=== PATIENT | female | born 1995 | race Caucasian/White ===

== ENCOUNTER 2018-04-15 17:30 | Emergency (ER) | payer OTHER ==
[2018-04-15 20:22] LABS: ABS Basophils 0.1 10^3/ul (0-0.2); ABS Eosinophils 0.2 10^3/ul (0-0.6); ABS Lymphocytes 2.8 10^3/ul (1.0-4.8); ABS Monocytes 0.5 10^3/ul (0-0.8); ABS Neutrophils 5.2 10^3/ul (1.5-7.7); ABS Nucleated RBC 0 10^3/ul; Eosinophil % 2.1 %; Hematocrit 42 % (35-47); Hemoglobin 13.8 g/dl (12.0-16.0); Lymphocyte % 31.7 %; Mean Corpuscular HGB Conc 33 g/dl (31-36); Mean Corpuscular Hemoglobin 28 pg (27-31); Mean Corpuscular Volume 85 fL (80-97); Mean Platelet Volume 9.1 fL (7.4-10.4); Nucleated Red Blood Cells % 0.1; Platelet Count 413 10^3/ul (150-450); Red Blood Count 4.92 10^6/ul (4.00-5.40); Red Cell Distribution Width 13 % (10.5-15); White Blood Count 8.8 10^3/ul (3.5-10.8)
[2018-04-15 20:37] LABS: Albumin 4.9 g/dL (3.2-5.2); Albumin/Globulin Ratio 1.4 (1-3); BUN/Creatinine Ratio 15.4 (8-20); Globulin 3.5 g/dL (2-4); Potassium 3.6 mmol/L (3.5-5.0); Total Bilirubin 0.3 mg/dL (0.2-1.0); Total Protein 8.4 g/dL (6.4-8.9)
[2018-04-15] MEDS ORDERED: Sulfamethox/Trimethoprim DS 800/160* TAB PO ONE (20:51)
--- NOTE | 2018-04-15 20:54 | ED ---
Skin Complaint - HPI Summary HPI Summary: Patient complains of right ankle surgery 7 weeks ago with new onset redness, swelling and pain at right ankle starting yesterday. Follow-up at 4 weeks with surgeon unremarkable, patient states she has been having mild pain since. Denies purulent discharge from surgical site denies fever, cough, sore throat, CV, SOB, N/V/D, bowel pain, change in urine, change in BM. Medical history is none. - History of Current Complaint Chief Complaint: EDExtremityLower Time Seen by Provider: 04/15/18 20:01 Stated Complaint: POSS INFECTION RT ANKLE Hx Obtained From: Patient Onset/Duration: Started Hours Ago Skin Exposure Onset/Duration: Hours Ago Timing: Constant Onset Severity: Mild Current Severity: Mild Pain Intensity: 0 Pain Scale Used: 0-10 Numeric Skin Location: Discrete Aggravating Symptom(s): Nothing Alleviating Symptom(s): Nothing - Allergy/Home Medications Allergies/Adverse Reactions: Allergies Allergy/AdvReac Type Severity Reaction Status Date / Time No Known Allergies Allergy Verified 04/15/18 17:36 Home Medications: Home Medications Albuterol Sulfate [Ventolin Hfa] 1 puff INH Q6HR PRN 04/15/18 [History Confirmed 04/15/18] Amitriptyline TAB* [Elavil TAB*] 125 mg PO BEDTIME 04/15/18 [History Confirmed 04/15/18] Montelukast Sodium TAB* [Singulair TAB*] 10 mg PO DAILY 04/15/18 [History Confirmed 04/15/18] PMH/Surg Hx/FS Hx/Imm Hx Endocrine/Hematology History: Denies: Hx Anticoagulant Therapy Cardiovascular History: Denies: Hx Cardiac Arrest History: Denies: Hx Dialysis Sensory History: Denies: Hx Eye Prosthesis EENT History: Denies: Hx Deafness Neurological History: Denies: Hx Developmental Delay Psychiatric History: Denies: Hx Autism Infectious Disease History: No Infectious Disease History: Denies: Traveled Outside the [place] in Last 30 Days - Family History Known Family History: Positive: None - REVIEWED & NONCONTRIBUTORY - Social History Alcohol Use: None Hx Substance Use: No Substance Use Type: Reports: None Hx Tobacco Use: No Smoking Status (MU): Never Smoked Tobacco Review of Systems Constitutional: Negative Eyes: Negative ENT: Negative Cardiovascular: Negative Respiratory: Negative Gastrointestinal: Negative Genitourinary: Negative Musculoskeletal: Other Skin: Negative Neurological: Negative Psychological: Normal All Other Systems Reviewed And Are Negative: Yes Physical Exam - Summary Physical Exam Summary: Mild erythema along surgical incision site on the lateral right ankle. Right ankle appears to be mildly warmer, mildly erythematous and mildly swollen versus left ankle. No purulent discharge. Patient flexes and extends everts and inverts right ankle with no indication of pain. PMS intact distally. Triage Information Reviewed: Yes Vital Signs On Initial Exam: Initial Vitals Temp Pulse Resp BP Pulse Ox 99.9 F 107 16 166/96 98 04/15/18 17:32 04/15/18 17:32 04/15/18 17:32 04/15/18 17:32 04/15/18 17:32 Vital Signs Reviewed: Yes Appearance: Positive: Well-Appearing Skin: Positive: Warm Head/Face: Positive: Normal Head/Face Inspection Eyes: Positive: Normal ENT: Positive: Normal ENT inspection Neck: Positive: Supple Respiratory/Lung Sounds: Positive: Clear to Auscultation Cardiovascular: Positive: Normal Abdomen Description: Positive: Nontender Musculoskeletal: Positive: Normal Neurological: Positive: Normal Psychiatric: Positive: Normal AVPU Assessment: Alert - Aliyah Coma Scale Best Eye Response: 4 - Spontaneous Best Motor Response: 6 - Obeys Commands Best Verbal Response: 5 - Oriented Coma Scale Total: 15 Diagnostics - Vital Signs Vital Signs Temp Pulse Resp BP Pulse Ox 04/15/18 19:32 98.5 F 110 20 166/89 97 04/15/18 17:32 99.9 F 107 16 166/96 98 - Laboratory Lab Results: Lab Results 04/15/18 04/15/18 04/15/18 Range/Units 20:08 20:08 20:08 WBC 8.8 (3.5-10.8) 10^3/ul RBC 4.92 (4.00-5.40) 10^6/ul Hgb 13.8 (12.0-16.0) g/dl Hct 42 (35-47) % MCV 85 (80-97) fL MCH 28 (27-31) pg MCHC 33 (31-36) g/dl RDW 13 (10.5-15) % Plt Count 413 (150-450) 10^3/ul MPV 9.1 (7.4-10.4) fL Neut % (Auto) 59.5 % Lymph % (Auto) 31.7 % Prentiss % (Auto) 6.0 % Eos % (Auto) 2.1 % Baso % (Auto) 0.7 % Absolute Neuts (auto) 5.2 (1.5-7.7) 10^3/ul Absolute Lymphs (auto) 2.8 (1.0-4.8) 10^3/ul Absolute Monos (auto) 0.5 (0-0.8) 10^3/ul Absolute Eos (auto) 0.2 (0-0.6) 10^3/ul Absolute Basos (auto) 0.1 (0-0.2) 10^3/ul Absolute Nucleated RBC 0 10^3/ul Nucleated RBC % 0.1 Sodium 139 (135-145) mmol/L Potassium 3.6 (3.5-5.0) mmol/L Chloride 105 (101-111) mmol/L Carbon Dioxide 26 (22-32) mmol/L Anion Gap 8 (2-11) mmol/L BUN 10 (6-24) mg/dL Creatinine 0.65 (0.51-0.95) mg/dL Est GFR ( Amer) 137.9 (>60) Est GFR (Non-Af Amer) 114.0 (>60) BUN/Creatinine Ratio 15.4 (8-20) Glucose 90 (70-100) mg/dL Lactic Acid 0.9 (0.5-2.0) mmol/L Calcium 10.0 (8.6-10.3) mg/dL Total Bilirubin 0.30 (0.2-1.0) mg/dL AST 15 (13-39) U/L ALT 16 (7-52) U/L Alkaline Phosphatase 122 H (34-104) U/L Total Protein 8.4 (6.4-8.9) g/dL Albumin 4.9 (3.2-5.2) g/dL Globulin 3.5 (2-4) g/dL Albumin/Globulin Ratio 1.4 (1-3) Result Diagrams: 04/15/18 20:08 04/15/18 20:08 Lab Statement: Any lab studies that have been ordered have been reviewed, and results considered in the medical decision making process. Course/Dx - Course Course Of Treatment: Patient complains of right ankle surgery 7 weeks ago with new onset redness, swelling and pain at right ankle starting yesterday. Follow- up at 4 weeks with surgeon unremarkable, patient states she has been having mild pain since. Denies purulent discharge from surgical site denies fever, cough, sore throat, CV, SOB, N/V/D, bowel pain, change in urine, change in BM. Medical history is none. Physical exam:Mild erythema along surgical incision site on the lateral right ankle. Right ankle appears to be mildly warmer, mildly erythematous and mildly swollen versus left ankle. No purulent discharge. Patient flexes and extends everts and inverts right ankle with no indication of pain. PMS intact distally. Vital signs within normal limits. X- ray positive for prior fractures and surgery. No acute process. Labs unremarkable. Rx for Bactrim. Follow-up with surgeon - Diagnoses Provider Diagnoses: Cellulitis Discharge - Sign-Out/Discharge Documenting (check all that apply): Patient Departure - Discharge Plan Condition: Stable Disposition: HOME Prescriptions: Sulfamethox/Trimethoprim DS* [Bactrim DS 800/160 TAB*] 1 tab PO BID 10 Days #20 tab Patient Education Materials: Cellulitis (ED) Referrals: No Primary Care Phys,NOPCP [Primary Care Provider] - Additional Instructions: Take antibiotics as directed. Keep wound clean and dry. Follow-up with your surgeon. Return to the ED for any new or worsening symptoms - Billing Disposition and Condition Condition: STABLE Disposition: Home
[2018-04-15 22:06] VITALS: BP 125/74
== END 2018-04-15 21:30 | disposition home or self-care (01) ==
LOC: ED 17:30
DX: L03.115 Cellulitis of right lower limb (principal); Z98.890 Other specified postprocedural states
CPT/HCPCS: 36415; 80053; 83605; 85025; 99283; A9270-GY